=== PATIENT | female | born 1990 | race Caucasian/White ===

== ENCOUNTER 2019-06-22 02:16 | Emergency (ER) | payer OTHER ==
[~2019-06-22] VITALS: Ht 157.5 cm; Wt 45.8 kg
[~2019-06-22 02:16] MED LIST: CALCIUM; MACROBID 100 M100 M1 PO; TRINATE TABLET1 TAB PO; ULTRAM 50MG TAB50 MG PO; VITAMIN C120 GM; [UNRECOGNIZED DRUG - OTHER]
[2019-06-22 04:57] LABS: BASOPHILS 0.7 % (0.0-2.0); EOSINOPHILS 2.1 % (0.0-3.0); HEMATOCRIT 39.8 % (37.0-47.0); HEMOGLOBIN 13.4 gm/dL (12.0-15.0); LYMPHOCYTES 50.8 % (24.0-44.0); MCH 31.1 pg (26.0-34.0); MCHC 33.6 g/dL (28.0-37.0); MCV 92.7 fL (80.0-100.0); MONOCYTES 6.6 % (1.0-8.0); PLATELET COUNT 179 thou/uL (150-400); POLYS 39.8 % (36.0-66.0); RBC 4.29 mil/uL (4.20-5.00); RDW 13.1 % (10.5-14.5)
[2019-06-22 04:59] LABS: CALCIUM 7.9 mg/dL (8.5-10.1); CREATININE 0.4 mg/dL (0.6-1.0); POTASSIUM 3.7 mmol/L (3.5-5.1)
[2019-06-22 05:04] LABS: ALBUMIN 3.7 g/dL (3.4-5.0); TOTAL BILIRUBIN 0.5 mg/dL (<0.1-1.0); TOTAL PROTEIN 7.4 g/dL (6.4-8.2)
[2019-06-22] MEDS ORDERED: IBU400 MG PO (05:27)
[2019-06-22] MEDS ORDERED: FLEXERIL PO (05:27)
[2019-06-22 05:50] VITALS: BP 96/54
== END 2019-06-22 05:55 | disposition home or self-care (01) ==
LOC: ER 02:16
PROVIDERS: Emergency Medicine Emergency Medical Services
DX: S50.11XA Contusion of right forearm, initial encounter (principal); V89.2XXA Person injured in unspecified motor-vehicle accident, traffic, initial encounter; Y93.89 Activity, other specified; Y92.89 Other specified places as the place of occurrence of the external cause; Y99.8 Other external cause status